=== PATIENT | male | born 1940 | race Caucasian/White ===

== ENCOUNTER 2016-08-29 10:19 | Emergency (ER) | payer OTHER ==
[~2016-08-29 10:19] MED LIST: DILT-XR180 MG PO; DORZOLAMIDE HCL2 % OP; ELIQUIS5 MG PO; FLECAINIDE ACE100 MG PO; LATANOPROST0.005 % OP; MULTIVITAMIN1 TAB PO; OMEGA 31000 MG PO; OMEPRAZOLE20 M1 PO; TIMOLOL MALEATE0.5 % OP; VITAMIN D-31000 UNIT PO; [UNRECOGNIZED DRUG - CODE] PO
--- NOTE | 2016-08-29 11:02 | DIAGNOSTIC IMAGING REPORT ---
PROCEDURE: XR ANKLE 3 OR 4 VIEWS - RIGHT INDICATION: PAIN TECHNIQUE: Four views. COMPARISON: None. FINDINGS: Osseous structures and joint spaces are normal. IMPRESSION: 1. Normal right ankle.
--- NOTE | 2016-08-29 12:56 | DIAGNOSTIC IMAGING REPORT ---
PROCEDURE: US ABDOMEN ULTRASOUND-LIMITED INDICATION: ABNORMAL LFT TECHNIQUE: Rodriguez scale and color Doppler sonographic images were obtained of the right upper quadrant. COMPARISON: CT 02/29/2016 FINDINGS: The liver is normal in size, contour, and echotexture. No mass or biliary dilatation. The gallbladder fundus contains multiple shadowing calcifications obscuring visualization of the remainder of the gallbladder. The structure believed to be the wall is about 1.5 mm in thickness. The visualized common duct is 3 mm. No visible pericholecystic fluid or Love's sign. The pancreas was not seen secondary to bowel gas. The visible portion of the inferior vena cava, abdominal aorta, and portal vein appear normal with appropriate direction of flow in the portal vein. The right kidney demonstrates a thin renal cortex with prominence of the renal sinus fat, and measures 9.4 cm in length. No hydronephrosis. IMPRESSION: 1. Cholelithiasis without convincing findings of cholecystitis. 2. No biliary dilatation. 3. Nonvisualization of the pancreas. 4. Right renal cortical thinning. Correlate with kidney function.
--- NOTE | 2016-08-29 13:12 | ED ORDER SUMMARY ---
..... Patient: ELIESER VALENCIA OrderSheet [facility] VisitID: [id number] [place] [address] 76y, M Registration Date/Time: 08/29/2016 ORDER SHEET Weight: 105.6 kg (stated) Allergies: No Known Drug Allergy GENERAL ORDERS: CBC w Diff Urgent (10:41 08/29/2016 Ervin PRITCHETT) (Ack 11:01 Kvng) (11:02 JBoardlebeth R.N.) CMP Urgent (10:41 08/29/2016 Ervin PRITCHETT) (Ack 11:01 Kvng) (11:02 JBoardlebeth R.N.) PT with INR Urgent (10:41 08/29/2016 Ervin PRITCHETT) (Ack 11:01 Kvng) (11:02 JBoardlebeth R.N.) PTT Urgent (10:41 08/29/2016 Ervin PRITCHETT) (Ack 11:01 Kvng) (11:02 JBoardlebeth R.N.) ESR Urgent (10:41 08/29/2016 Ervin PRITCHETT) (Ack 11:01 Kvng) (11:02 JBlebron R.N.) CRP Urgent (10:41 08/29/2016 Ervin PRITCHETT) (Ack 11:01 Kvng) (11:02 JBoardley R.N.) Uric Acid Urgent (10:41 08/29/2016 Ervin PRITCHETT) (Ack 11:01 Kvng) (11:02 JBoardley R.N.) Ankle 3 or 4V Right Urgent (10:42 08/29/2016 Ervin PRITCHETT) (10:51 JBoardley R.N.) US Abdomen Limited (No) Urgent (11:37 08/29/2016 Ervin PRITCHETT) (Ack 11:42 Kvng) (12:28 JBoardlebeth R.N.) Amylase Urgent (11:37 08/29/2016 Ervin PRITCHETT) (Ack 11:42 Kvng) (11:52 JBoardley R.N.) Lipase Urgent (11:37 08/29/2016 Ervin PRITCHETT) (Ack 11:42 Kvng) (11:52 Evon R.N.) UA-Culture if indicated Urgent (11:42 08/29/2016 Ervin PRITCHETT) (Ack 11:43 Kvng) (11:50 Evon R.N.) MEDICATION ORDERS: IV FLUIDS: IV Saline Lock (10:41 08/29/2016 Ervin PRITCHETT) (10:49 Evon Negrete.N.) ORDER SHEET NOTES: [Electronically signed by Shiv Stout MD (13:37 08/29/2016)] [Electronically signed by Reid Salazar R.N. (13:39 08/29/2016)] [Electronically locked/signed by Reid Salazar R.N. (13:39 08/29/2016)]
--- NOTE | 2016-08-29 13:12 | ED CLINICAL REPORT ---
Clinical Report - Physicians/Mid Levels [place] [address] [place] [address] 08/29/2016 10:20 Patient: ELIESER VALENCIA Time Seen: 10:35. Arrived- By private vehicle. Historian- patient. HISTORY OF PRESENT ILLNESS Chief Complaint: LOWER EXTREMITY PAIN and SWELLING. Severity is described as being moderate. It has become recently worse. The quality is noted to be burning. This started several weeks ago and is still present (worse since yesterday). It was gradual in onset and has been intermittent and waxing/waning. Symptoms located in the area of the right ankle and right foot. The patient has had redness (recently - gone now). He has had swelling. He has had difficulty walking. It has been associated with pain in the right leg. Patient denies an injury. Recent medical care: The patient was seen recently at another facility in a clinic. Diagnosis: unknown. REVIEW OF SYSTEMS No chills, fever, sweats, black stools or bloody stools. No constipation, diarrhea, nausea or vomiting. He has had intermittent abdominal pain (chronically - worsened by eating fatty meals). He has had urinary problems (he had dark orange urine for about 4 days - improving since yesterday). his Lisinopril was increased form 50 mg to 100 mg on the 21st of last month. All systems otherwise negative, except as recorded above. PAST HISTORY ( Primary physician (JERSON LAMAR)). Problems: Gout. Abdominal Pain. Atrial Fibrillation. Additional Surgeries: Cardiac Procedures. Hip Surgery. Medications: Xarelto Oral (Tablet 20 mg) 1 tablet, every evening. Timolol Maleate Ophthalmic (Solution 0.5 %). Omeprazole Oral 20 mg, daily. Losartan Potassium Oral 50 mg, 2 tabs daily. Latanoprost Ophthalmic (Solution 0.005 %). Dorzolamide HCl Ophthalmic (Solution 2 %). Diltiazem HCl ER Oral 180mg, daily. Flecainide Acetate Oral (Tablet 100 mg) 1 tablet, 2x a day. Allergies: No Known Drug Allergy. SOCIAL HISTORY Smoker- current status unknown. No alcohol use or drug use. Is a local resident. He lives with a friend. FAMILY HISTORY Family medical history is unknown due to adoption. ADDITIONAL NOTES The nursing notes have been reviewed. PHYSICAL EXAM Vital Signs: 08/29/2016 10:28 BP: 143/86. HR: 91. RR: 16. O2 saturation: 99%. Temp: 97.7 F. Pain level now: 02/28. Have been reviewed. Appearance: Alert. Eyes: Pupils equal, round and reactive to light. ENT: Pharynx normal. Neck: Normal inspection. Neck supple. CVS: Normal heart rate and rhythm. Heart sounds normal. Respiratory: No respiratory distress. Breath sounds normal. Abdomen: Soft and nontender. No organomegaly. Skin: Skin warm and dry. Normal skin color. Normal skin turgor. Extremities: Right foot: moderate tenderness located in the medial aspect of the foot and toe(s). Lower extremities exhibit normal ROM. No lower extremity edema. No signs of infection involving the lower extremities. Gait: Abnormal gait. Limping gait. LABS, X-RAYS, AND EKG X-Rays: Right ankle negative. Abdominal Sonogram: Multiple gallstones are present. (discussed with the [employer]). No gallbladder wall thickening, pericholecystic fluid, dilated common duct or common duct stones. The study was independently viewed by me. Laboratory Tests: UA-Culture if indicated: (GIULIANO: 08/29/2016 11:45) ( MsgRcvd 08/29/2016 12:09) Final results Test Result Flag Units (Reference) URINE COLOR YELLOW URINE APPEARANCE CLEAR URINE GLUCOSE NEGATIVE (NEGATIVE) URINE BILIRUBIN NEGATIVE (NEGATIVE) URINE KETONE NEGATIVE (NEGATIVE) URINE SPECIFIC GRAVITY 1.015 (1.010-1.030) URINE PH 6.0 (5.0-8.0) URINE PROTEIN NEGATIVE (NEGATIVE) URINE UROBILINOGEN 1.0 EU/dL (0.2-1.0) URINE NITRITE NEGATIVE (NEGATIVE) URINE BLOOD 1+ (NEGATIVE) URINE LEUK ESTERASE NEGATIVE (NEGATIVE) URINE RBC 3-5 rbc/hpf (0-1) URINE WBC 1-3 wbc/hpf (0-1) URINE EPITHELIAL CELLS RARE EPI/hpf (0-5) URINE BACTERIA TRACE (<1+) (NONE SEEN) URINE COMMENT CULT NOT INDICATED 1+ MUCOUSURINE CULTURES ARE SET-UP BASED ON THE FOLLOWING CRITERIA:POSITIVE NITRITEPOSITIVE LEUKOCYTE ESTERASEGREATER THAN 10 WHITE BLOOD CELLSMODERATE (2+) OR GREATER BACTERIA CBC w Diff: (GIULIANO: 08/29/2016 10:50) ( [facility] 08/29/2016 11:20) Final results Test Result Flag Units (Reference) WHITE BLOOD COUNT 7.4 K/uL (4.5-11.5) RED BLOOD COUNT 5.07 M/uL (4.50-5.90) HEMOGLOBIN 13.8 gm/dL (13.5-17.5) HEMATOCRIT 41.8 % (41.0-53.0) MEAN CELL VOLUME 82 fL (80-100) MEAN CORPUSCULAR HGB 27 pg (26-34) MEAN CORPUSCULAR HGB CONC 33 g/dL (31-37) RED CELL DISTRIBUTION WIDTH 16.0 H % (11.6-14.8) PLATELET COUNT 285 K/uL (150-400) NEUTROPHIL % 62.6 % (50-75) LYMPH % 23.3 L % (25-40) MONO % 9.2 % (3-14) EOSINOPHIL % 4.0 % (0-4) BASOPHIL % 0.9 % (0-2) SED RATE WESTERGREN 20 mm/hr (0-20) PT with INR: (GIULIANO: 08/29/2016 10:50) ( [facility] 08/29/2016 11:16) Final results Test Result Flag Units (Reference) INR 1.5 H (0.8-1.2) Low Intensity Therapy: INR 1.5-2.0 PT range 18.5-23.1Mod.Intensity Therapy: INR 2.0-3.0 PT range 23.1-31.5High Intensity Therapy: INR 2.5-3.5 PT range 27.4-35.5High Intensity Therapy 2: INR 3.0-4.0 PT range 31.5-39.3 APTT 38 H SECONDS (24-34) Lipase: (GIULIANO: 08/29/2016 10:50) ( [facility] 08/29/2016 11:55) Final results Test Result Flag Units (Reference) LIPASE 260 U/L (73-393) AMYLASE 48 U/L (25-115) CMP: (GIULIANO: 08/29/2016 10:50) ( MsgRcvd 08/29/2016 11:16) Final results Test Result Flag Units (Reference) GLUCOSE 109 mg/dL (70-110) BUN 21 H mg/dL (7-18) CREATININE 1.4 H mg/dL (0.6-1.3) Estimated GFR 52.51 mL/min Estimated GFR- >60 mL/min Note: Persistent reduction over 3 months in eGFR<60 mL/min/1.73 m2 defines CKD. Patients with eGFR values>=60 mL/min/1.73 m2 may also have CKD if evidence ofpersistent proteinuria. Additional information may be foundat www.kidney.org. SODIUM 138 mmol/L (136-145) POTASSIUM 4.0 mmol/L (3.5-5.1) CHLORIDE 104 mmol/L (98-107) CARBON DIOXIDE 26 mmol/L (21-32) CALCIUM 9.1 mg/dL (8.5-10.1) TOTAL PROTEIN 8.0 g/dL (6.4-8.2) ALBUMIN 3.2 L g/dL (3.3-5.0) BILIRUBIN, TOTAL 1.2 H mg/dL (0.0-1.0) ALKALINE PHOSPHATASE 343 H U/L (46-116) AST (SGOT) 57 H U/L (15-37) ALT (SGPT) 167 H U/L (12-78) URIC ACID 7.0 mg/dL (2.6-7.2) C-REACTIVE PROTEIN 2.9 H mg/dL (0.0-0.9) . PROGRESS AND PROCEDURES Course of Care: Patient is stable. Discussed case with patient's primary care provider, (Pro). Reviewed test results and need for additional work-up. Agreed upon treatment plan and need for patient follow-up. Health care provider will see patient in office. Patient/family counseled. Old medical records reviewed. Disposition: Discharged. Condition: stable. CLINICAL IMPRESSION Right ankle and foot pain. Biliary colic with multiple gallstones. Renal insufficiency. INSTRUCTIONS You may walk and bear weight as tolerated. Avoid fatty and fried/greasy foods. Warnings: Further evaluation is necessary. GENERAL WARNINGS: Return or contact your physician immediately if your condition worsens or changes unexpectedly, if not improving as expected, or if other problems arise. Your Current Medications: CONTINUE TAKING THE FOLLOWING MEDICATIONS: Diltiazem HCl ER Oral : 180mg daily. Dorzolamide HCl Ophthalmic : Solution 2 %. Flecainide Acetate Oral : Tablet 100 mg, 1 tablet 2x a day. Latanoprost Ophthalmic : Solution 0.005 %. Losartan Potassium Oral : 50 mg 2 tabs daily. Omeprazole Oral : 20 mg daily. Timolol Maleate Ophthalmic : Solution 0.5 %. Xarelto Oral : Tablet 20 mg, 1 tablet every evening. Prescription Medications: Prednisone 20 mg: take 2 orally every day for 5 days. Dispense ten (10). No refills. Follow-up: Follow up with your doctor JERSON LAMAR in four days. Call for an appointment. Understanding of the discharge instructions verbalized by patient. Follow-up with: Oliverio Kirby MD, General Surgeon, , [facility], [address] [place] [address] Follow up in seven days. Call for the next available appointment. (Electronically signed by Shiv Stout MD 08/29/2016 13:37)
--- NOTE | 2016-08-29 13:12 | ED ORDER SUMMARY ---
..... Patient: ELIESER VALENCIA OrderSheet [facility] VisitID: [id number] [place] [address] 76y, M Registration Date/Time: 08/29/2016 ORDER SHEET Weight: 105.6 kg (stated) Allergies: No Known Drug Allergy GENERAL ORDERS: CBC w Diff Urgent (10:41 08/29/2016 Ervin PRITCHETT) (Ack 11:01 Kvng) (11:02 JBoardlebeth R.N.) CMP Urgent (10:41 08/29/2016 Ervin PRITCHETT) (Ack 11:01 Kvng) (11:02 JBoardlebeth R.N.) PT with INR Urgent (10:41 08/29/2016 Ervin PRITCHETT) (Ack 11:01 Kvng) (11:02 JBoardlebeth R.N.) PTT Urgent (10:41 08/29/2016 Ervin PRITCHETT) (Ack 11:01 Kvng) (11:02 JBoardlebeth R.N.) ESR Urgent (10:41 08/29/2016 Ervin PRITCHETT) (Ack 11:01 Kvng) (11:02 JBlebron R.N.) CRP Urgent (10:41 08/29/2016 Ervin PRITCHETT) (Ack 11:01 Kvng) (11:02 JBoardley R.N.) Uric Acid Urgent (10:41 08/29/2016 Ervin PRITCHETT) (Ack 11:01 Kvng) (11:02 JBoardley R.N.) Ankle 3 or 4V Right Urgent (10:42 08/29/2016 Ervin PRITCHETT) (10:51 JBoardley R.N.) US Abdomen Limited (No) Urgent (11:37 08/29/2016 Ervin PRITCHETT) (Ack 11:42 Kvng) (12:28 JBoardlebeth R.N.) Amylase Urgent (11:37 08/29/2016 Ervin PRITCHETT) (Ack 11:42 Kvng) (11:52 JBoardley R.N.) Lipase Urgent (11:37 08/29/2016 Ervin PRITCHETT) (Ack 11:42 Kvng) (11:52 Evon R.N.) UA-Culture if indicated Urgent (11:42 08/29/2016 Ervin PRITCHETT) (Ack 11:43 Kvng) (11:50 Evon R.N.) MEDICATION ORDERS: IV FLUIDS: IV Saline Lock (10:41 08/29/2016 Ervin PRITCHETT) (10:49 Evon Negrete.N.) ORDER SHEET NOTES: [Electronically signed by Shiv Stout MD (13:37 08/29/2016)] [Electronically signed by Reid Salazar R.N. (13:39 08/29/2016)] [Electronically locked/signed by Reid Salazar R.N. (13:39 08/29/2016)]
--- NOTE | 2016-08-29 13:12 | ED NURSING NOTES ---
Clinical Report - Nurses [facility] [address] [place] [address] 08/29/2016 10:20 Patient: ELIESER VALENCIA TRIAGE Triage time 10:26. Acuity: LEVEL 4. Chief Complaint: Location of symptoms- right ankle. 10:26 08/29/16. 10:08/29/16. Alert. No acute distress. ( Right ankle pain that started 02 of AUGUST. Pt states that he went to PCP regarding this pain. Pt also states that this right ankle pain starting getting worse yesterday.). SEPSIS SCREEN: Sepsis Screen. Negative (no infection suspected/documented). [place] COMA SCORE: [place] Coma Scale: 15- eyes open spontaneously (4); best verbal response- oriented x 4 (5); best motor response- obeys commands (6). --10:35 Reid Salazar R.N. 10:28 08/29/16. BP: 143/86. HR: 91. RR: 16. O2 saturation: 99% on room air. Temp: 97.7 F (oral). Pain level now: 02/28. --10:35 Reid Salazar R.N. Weight: 105.6 kg stated. Height/Length: 72 inches Per Patient. BMI: 31.6. --10:34 Reid Salazar R.N. Medications Flecainide Acetate Oral (Tablet 100 mg) 1 tablet, 2x a day. --10:29 Reid Salazar R.N. Diltiazem HCl ER Oral 180mg, daily. --10:31 Reid Salazar R.N. Dorzolamide HCl Ophthalmic (Solution 2 %). --10:32 Reid Salazar R.N. Latanoprost Ophthalmic (Solution 0.005 %). --10:32 Reid Salazar R.N. Losartan Potassium Oral 50 mg, 2 tabs daily. --10:33 Reid Salazar R.N. Omeprazole Oral 20 mg, daily. --10:33 Reid Salazar R.N. Timolol Maleate Ophthalmic (Solution 0.5 %). --10:34 Reid Salazar R.N. Xarelto Oral (Tablet 20 mg) 1 tablet, every evening. --10:34 Reid Salazar R.N. The following entry was struck by Reid Salazar R.N., 10:44 (08/29/16) Reason - other. <<STRICKEN ENTRY-- Eliquis Oral (Tablet 5 mg) 1 tablet, bid. --10:29 Reid Salazar R.N. --END STRIKE>> The following entry was struck by Reid Salazar R.N., 10:31 (08/29/16) Reason - other. <<STRICKEN ENTRY-- Diltiazem HCl Oral 180 mg, 2x a day. --10:29 Reid Salazar R.N. --END STRIKE>>. Allergies No Known Drug Allergy. --10:29 Reid Salazar R.N. History Arrived by private vehicle. Historian: patient. Accompanied by friend. Primary physician (JERSON LAMAR). 10:08/29/16. No injury occurred. Treatment SETTER OUT: None. PAST MEDICAL HX: No history of deep vein thrombosis. Tetanus status: up-to-date. Immunizations: up-to-date. SOCIAL HX: Smoker- current status unknown. No alcohol use or drug use. FALL RISK ASSESSMENT: Fall risk assessment completed. No fall risk identified. NUTRITIONAL RISK ASSESSMENT: The nutritional risk assessment revealed no deficiencies. FUNCTIONAL ASSESSMENT: Functional assessment: no impairments noted. LEARNING NEEDS ASSESSMENT: The learning needs assessment revealed no barriers. --10:35 Reid Salazar R.N. PROBLEMS: Abdominal Pain. Atrial Fibrillation. --10:29 Reid Salazar R.N. ADDITIONAL SURGERIES: Hip Surgery. --10:29 Reid Salazar R.N. Cardiac Procedures. --10:29 Reid Salazar R.N. Assessment 10:08/29/16. --10:35 Reid Salazar R.N. Interventions 10:08/29/16. 10:08/29/16. ID and allergy band on patient. To treatment room. --10:35 Reid Salazar R.N. PHYSICAL ASSESSMENT 10:35 08/29/16. Ambulatory to room. GENERAL / NEURO / PSYCH: Oriented X 4. Alert. Appears in no acute distress. EXTREMITIES: Extremity pulses are within normal limits. Neuro-vascular status intact to the extremity. Right ankle: tenderness and swelling. SKIN: Skin is warm and dry. --10:35 Reid Salazar R.N. NURSING PROGRESS NOTES 10:35 08/29/16. Call light placed in reach. Side rails up x 2. Bed placed in lowest position. Brakes of bed on. Patient ready for evaluation- chart flagged and notification provided. --10:35 Reid Salazar R.N. 10:35 08/29/16. The plan of care for this patient has been created. Extremity elevated. Reassurance given. --10:35 Reid Salazar R.N. 10:43 08/29/2016 Site #1 started via IV in the right forearm with an 20g angiocath; one attempt. Blood drawn: rainbow set. Labeled in the presence of the patient and sent to the lab. Saline lock flushed with 10 mL saline. --10:48 Reid Salazar R.N. 10:53 08/29/16. ( X-ray completed at bedside). --10:53 Reid Salazar R.N. 10:53 08/29/16. Patient waiting for lab results and radiology study result. --10:53 Reid Salazar R.N. 11:32 08/29/16. --11:32 Reid Salazar R.N. 11:31 08/29/16. BP: 134/74. HR: 77. RR: 14. O2 saturation: 99% on room air. Temp: 98.2 F (oral). --11:32 Reid Salazar R.N. 11:32 08/29/16. Patient informed about reason for wait and about plan of care. --11:32 Reid Salazar R.N. 11:32 08/29/16. Patient waiting for lab results. --11:32 Reid Salazar R.N. 11:32 08/29/16. Patient waiting for radiology results. --11:32 Reid Salazar R.N. 11:32 08/29/16. Patient waiting for disposition. --11:32 Reid Salazar R.N. 11:50 08/29/16. Patient informed about reason for wait and about plan of care. Patient waiting for diagnostic study to be done (US). --11:50 Reid Salazar R.N. 11:52 08/29/16. --11:52 Reid Salazar R.N. 11:51 08/29/16. BP: 144/77. HR: 60. RR: 14. O2 saturation: 100% on room air. Pain level now: 010. --11:52 Reid Salazar R.N. 11:52 08/29/16. GENERAL / NEURO / PSYCH: Alert. Oriented X 4. RESPIRATORY: No respiratory distress. CVS: Capillary refill less than 2 seconds. SKIN: Skin is warm and dry. --11:52 Reid Salazar R.N. 12:04 08/29/16. ( US at bedside). --12:04 Reid Salazar R.N. 12:27 08/29/16. ( US completed). --12:27 Reid Salazar R.N. 12:08/29/16. ( ERMD trying to page PCP for plan with patient, pt with gallstones). --12:51 Reid Salazar R.N. 12:51 08/29/16. --12:51 Reid Salazar R.N. 12:08/29/16. BP: 138/78. HR: 59. RR: 14. O2 saturation: 99% on room air. Temp: 98.1 F (oral). Pain level now: 010. --12:51 Reid Salazar R.N. 12:51 08/29/16. Patient informed about reason for wait and about plan of care. --12:51 Reid Salazar R.N. 12:51 08/29/16. Patient waiting for disposition. --12:51 Reid Salazar R.N. 13:09 08/29/16. Patient informed about reason for wait and about plan of care. --13:09 Reid Salazar R.N. DISPOSITION / DISCHARGE 13:28 08/29/16. BP: 157/85. HR: 60. RR: 16. O2 saturation: 100% on room air. Temp: 98 F (oral). Pain level now 0/10. --13:29 Albaro Humphrey R.N. 13:21 08/29/2016 Site #1 removed upon discharge. Catheter intact. Manual pressure and bandage applied. --13:31 Albaro Humphrey R.N. 13:29 08/29/16. Departure time: 1327. Condition at departure: improved and stable. No learning barriers present. Discharge instructions provided and reviewed with the patient. Reviewed medication(s) side effects, precautions, dosing and course information. Prescription(s) given to the patient. Follow up contact number f/u with mar and Dr Kirby, instructed to call today for appts. Patient verbalized understanding. Written instructions provided in Fijian. The patient was discharged by the physician. He was discharged home and accompanied by friend. He left the Emergency Department ambulatory and via private vehicle. Driving (friend). --13:29 Albaro Humphrey R.N. Locked/Released at 08/29/2016 13:39 by Reid Salazar R.N.
--- NOTE | 2016-08-29 13:39 | ED MED RECONCILIATION SUMMARY ---
Patient: ELIESER VALENCIA Medication Reconciliation Report [facility] VisitID: [id number] [address] [place] [address] 76y, M Registration Date/Time: 08/29/2016 Weight: 105.6 kg Height/Length: 72 in. BMI: 31.6 ALLERGIES: No Known Drug Allergy The patient's Home Medications are listed below: CONTINUE TAKING THE FOLLOWING MEDICATIONS: Diltiazem HCl ER Oral 180mg, daily Dorzolamide HCl Ophthalmic (2 %) Flecainide Acetate Oral (100 mg) 1 tablet, 2x a day Latanoprost Ophthalmic (0.005 %) Losartan Potassium Oral 50 mg, 2 tabs daily Omeprazole Oral 20 mg, daily Timolol Maleate Ophthalmic (0.5 %) Xarelto Oral (20 mg) 1 tablet, every evening The source(s) of the original Home Medication information: Not obtained. The following Medications were given to the patient in the Emergency Department: None. The following Medications were prescribed to the patient: Prednisone 20 mg: take 2 orally every day for 5 days. Dispense ten (10). No refills. -- Shiv Stout MD
--- NOTE | 2016-08-29 13:39 | ED MAR SUMMARY ---
..... Medication Administration Record [facility] [address] [place], [place] [id number] Patient: ELIESER VALENCIA Visit ID: [id number] 76y, M Weight: 105.6 kg Height/Length: 72 in BMI: 31.6 ALLERGIES: No Known Drug Allergy
--- NOTE | 2016-08-29 13:39 | ED MAR SUMMARY ---
..... Medication Administration Record [facility] [address] [place], [place] [id number] Patient: ELIESER VALENCIA Visit ID: [id number] 76y, M Weight: 105.6 kg Height/Length: 72 in BMI: 31.6 ALLERGIES: No Known Drug Allergy
--- NOTE | 2016-08-29 13:39 | ED DISCHARGE INSTRUCTIONS ---
Patient: LEIESER VALENCIA General Instructions [facility] VisitID: [id number] [place], [place] [id number] 76y, M Registration Date/Time: 08/29/2016 Right ankle and foot pain. Biliary colic with multiple gallstones. Renal insufficiency. INSTRUCTIONS You may walk and bear weight as tolerated. Avoid fatty and fried/greasy foods. Warnings: Further evaluation is necessary. GENERAL WARNINGS: Return or contact your physician immediately if your condition worsens or changes unexpectedly, if not improving as expected, or if other problems arise. Your Current Medications: CONTINUE TAKING THE FOLLOWING MEDICATIONS: Diltiazem HCl ER Oral : 180mg daily. Dorzolamide HCl Ophthalmic : Solution 2 %. Flecainide Acetate Oral : Tablet 100 mg, 1 tablet 2x a day. Latanoprost Ophthalmic : Solution 0.005 %. Losartan Potassium Oral : 50 mg 2 tabs daily. Omeprazole Oral : 20 mg daily. Timolol Maleate Ophthalmic : Solution 0.5 %. Xarelto Oral : Tablet 20 mg, 1 tablet every evening. Prescription Medications: Prednisone 20 mg: take 2 orally every day for 5 days. Dispense ten (10). No refills. Follow-up: Follow up with your doctor JERSON LAMAR in four days. Call for an appointment. Understanding of the discharge instructions verbalized by patient. Follow-up with: Oliverio Kirby MD, General Surgeon, , [facility], [address] [place] [address] Follow up in seven days. Call for the next available appointment. ADDITIONAL INFORMATION Gout Gout or "gouty arthritis" is an inflammation of a joint due to a build-up of gout crystals in the joint fluid. This occurs when there is an excess uric acid (a normal waste product) in the body. Uric acid builds up in the body when the kidneys are unable to filter enough of it from the blood. This may occur with aging or kidney disease. Gout occurs more often in persons with obesity, diabetes, hypertension, high fats in the blood. It may be present in other family members. Alcohol and certain foods (such as shellfish and alcohol) may increase uric acid levels in the blood and cause a gout attack. Gout causes a hot, red, swollen and painful joint. If you have had one episode of gout, you are likely to have another. An acute attack of gout can be treated with anti-inflammatory and other medicine. If these attacks become frequent it may be necessary to take a daily medicine to help the kidney remove uric acid from the body. Home Care: Apply an ice pack (ice cubes in a plastic bag, wrapped in a towel) over the injured area for 20 minutes every 1-2 hours the first day for pain relief. Continue this 3-4 times a day until the pain and swelling goes away. Avoid alcohol and foods listed below (see Prevention) during a gout attack. Drink extra fluid to help flush the uric acid through your kidneys. Rest painful joints. If gout affects the joints of your foot or leg, you may want to use crutches for the first few days to keep from bearing weight on the foot or leg. Take anti-inflammatory medicine as directed. You may be prescribed Indocin (indomethacin), or ybvi-jtu-utdnzzj drugs such as ibuprofen (Motrin, Advil) or naproxen (Naprosyn or Aleve). Tylenol will not be as effective since it is not an anti-inflammatory drug. If narcotic pain medicines have been prescribed, they should be used in addition to the anti-inflammatory drugs and only for severe pain. Avoid aspirin since this may slow down the flushing of the uric acid through your kidneys. Preventing Future Attacks: Minimize or avoid alcohol use. Excess alcohol intake can cause a gout attack. Foods high in purine form uric acid in the body and increase your risk for a gout attack. Therefore, avoid the following foods: certain seafoods (anchovies, sardines, shrimp, scallops, venegas, mackerel); wild game, meat extracts and meat gravies; organ foods (kidney, liver, calf brain, sweetbreads). Avoid drinks with fructose (a type of sugar). Limit the following foods to one serving a day: red meat and pork, fish, poultry, dried beans and peas, asparagus, mushrooms, cauliflower and spinach. If you are overweight, this is a risk factor and you should talk to your doctor about a weight reduction plan. However, avoid fasting or extreme low calorie diets (less than 900 chay/day) which will increase uric acid levels in the body. If you are diabetic or have high blood pressure, work with your doctor to achieve control of these conditions. Avoid injury to the involved joint since this can lead to a gout attack. Colchicine can be effective in stopping a gout attack. If you were given a prescription of this medicine for future use, begin it at the first sign of an attack. Colchicine may cause nausea, vomiting, diarrhea and other side effects. Follow Up with your doctor as advised or if you are not improving after three days of treatment. Get Prompt Medical Attention if any of the following occur: Fever over 100.4F (38.0C) with worsening joint pain Increasing redness around the joint Pain developing in another joint Repeated vomiting, abdominal pain, or blood in the vomit or stool (black or red color) GallstonesWith Biliary Colic [Confirmed Dx] The abdominal pain that you have today is due to spasm of the gallbladder. The gallbladder is a small sac under the liver which stores and releases bile. Bile is a fluid that aids in the digestion of fat. A gallstone may form inside the gallbladder and block the flow of bile fluid. This causes mild to severe crampy pain in the mid or right upper abdomen with nausea and vomiting. Home Care: Rest in bed and follow a clear liquid diet until feeling better. If pain or nausea medicine was given to help with your symptoms, take these as directed. Fat in your diet makes the gallbladder contract and may cause increased pain. Therefore, avoid fat in your diet over the next two days and follow a low-fat diet after that. If you are overweight, a low-fat diet will also help you lose weight. Follow Up with your doctor. There is a 50% chance that you will have another episode of pain from your gallstones during the next 2 years. Removal of the gallbladder is the treatment of choice to prevent this. Schedule an appointment with your own doctor during the next week to discuss the treatment options. Get Prompt Medical Attention if any of the following occur: Pain gets worse or moves to the right lower abdomen Repeated vomiting Swelling of the abdomen Pain lasts over 6 hours Fever of 100.4F (38C) or higher, or as directed by your healthcare provider Weakness, dizziness or fainting Dark urine or light colored stools Yellow color of the skin or eyes Chest, arm, back, neck or jaw pain Renal Insufficiency The role of the kidneys is to remove waste products and excess water from the body. When the kidneys do not function normally, waste products build up in the blood.The early stage of this process is called renal insufficiency . If renal insufficiency worsens it can lead to chronic renal failure. This allows excess water, waste and toxic substances to build up in the body. This can become a threat to life, requiring dialysis or a kidney transplant to stay alive. Diabetes is the leading causes of renal insufficiency. Other causes include high blood pressure, hardening of the arteries, lupus, inflammation of the blood vessels (vasculitis), prior viral and bacterial infections, and others. Certain mjdv-ydy-afnpgsb pain medicines can cause renal failure when taken often over a long period of time. These include aspirin, ibuprofen (Advil, Motrin) and related anti-inflammatory medicines. Home Care: If you have diabetes, talk to your doctor about the quality of your blood sugar control.Ask about any changes needed to your diet or medicines. If you have high blood pressure: Take your blood pressure medicine. Take up a regular exercise program that you enjoy.Check with your doctor to be sure your planned exercise program is right for you. Reduce your salt (sodium) intake.Your doctor can tell you how much salt per day is safe for you. If you are overweight, talk to your doctor about a weight loss plan. If you smoke, you must quit.Smoking worsens kidney disease.Talk to your doctor about ways to help you quit.For more information, visit the following links: www.smokefree.gov/pubs/clearing_the_air.pdf www.smokefree.gov www.quitnet.com Talk to your doctor about any dietary restrictions advised. In general, it is advisable to limit protein, salt, potassium and phosphorus.Avoid excess fluids. Do not add salt at the table and avoid salty foods.A calcium supplement may be prescribed to protect your bones from osteoporosis. Avoid the following over the counter medicines, or consult your doctor before using: Aspirin and anti-inflammatory drugs such as ibuprofen (Advil, Motrin), naprosyn (Aleve); [Short term use of acetaminophen (Tylenol) for fever or pain is okay.] Laxatives and antacids containing magnesium or aluminum (Mylanta, Maalox) Avoid Fleet or phosphosoda enemas which contain phosphorus Certain stomach acid-blocking medicine such as cimetidine (Tagamet), ranitidine (Zantac) Decongestants containing pseudoephedrine (such as some forms of Sudafed or Actifed) Herbal supplements Follow Up with your doctor or as advised by our staff. Contact one of the following for more information. [employer]([phone] 343-5066 www.aakp.org National Kidney Foundation www.kidney.org Return Promptly or contact your doctor if any of the following occurs: Nausea or vomiting Severe weakness, dizziness, fainting, drowsiness or confusion Chest pain or shortness of breath Unexpected weight gain or swelling in the legs, ankles or around the eyes Heart beating fast, slow or irregularly Decrease or loss in urine output [place] Diet A bland diet is used for patients with an upset stomach. It consists of foods that are mild and easy to digest. It is better to eat small frequent meals rather than three large meals a day. BEVERAGES OK: Fruit juices, non-caffeinated teas and coffee, non-carbonated [place] AVOID: Carbonated beverage, caffeinated tea and coffee, all alcoholic beverages BREAD OK: Refined white, wheat or rye bread, omega or soda crackers, [place] toast, plain rolls, bagels AVOID: Whole-grain bread CEREAL OK: Refined cereals: cooked or ready to eat AVOID: Whole grain cereals and granola, or those containing bran, seeds or nuts DESSERTS OK: Peanut butter and all others except those to "avoid" AVOID: Chocolate, cocoa, coconut, popcorn, nuts, seeds, jam, marmalade FRUITS OK: Canned, cooked, frozen or fresh fruits without seeds or tough skin AVOID: Olives, skin and seeds of fruit MEATS OK: All fresh or preserved meat, fish and fowl AVOID: Any that are prepared with those spices to "avoid" CHEESE & EGGS OK: Eggs, cottage cheese, cream cheese, other cheeses AVOID: All cheeses made with those spices to "avoid" POTATOES & PASTA OK: Potato, rice, macaroni, noodles, spaghetti AVOID: None SOUPS OK: All soups without heavy seasoning AVOID: Soups made with those spices to "avoid" VEGETABLES OK: Canned, cooked, fresh or frozen mildly flavored vegetables without seeds, skins or coarse fiber AVOID: Vegetables prepared with those spices to "avoid"; skin and seeds of vegetables and those with coarse fiber SPICES OK: Salt, lemon and [place] juice, vinegar, all extracts, chanel, cinnamon, thyme, mace, allspice, paprika AVOID: [place] powder, cloves, pepper, seed spices, garlic, gravy pickles, highly seasoned salad dressings Prednisone Oral tablet What is this medicine? PREDNISONE (PRED ni sone) is a corticosteroid. It is commonly used to treat inflammation of the skin, joints, lungs, and other organs. Common conditions treated include asthma, allergies, and arthritis. It is also used for other conditions, such as blood disorders and diseases of the adrenal glands. How should I use this medicine? Take this medicine by mouth with a glass of water. Follow the directions on the prescription label. Take this medicine with food. If you are taking this medicine once a day, take it in the morning. Do not take more medicine than you are told to take. Do not suddenly stop taking your medicine because you may develop a severe reaction. Your doctor will tell you how much medicine to take. If your doctor wants you to stop the medicine, the dose may be slowly lowered over time to avoid any side effects. Talk to your litigation examiner regarding the use of this medicine in children. Special care may be needed. What side effects may I notice from receiving this medicine? Side effects that you should report to your doctor or health hospice care consultant as soon as possible: allergic reactions like skin rash, itching or hives, swelling of the face, lips, or tongue changes in emotions or moods changes in vision depressed mood eye pain fever or chills, cough, sore throat, pain or difficulty passing urine increased thirst swelling of ankles, feet Side effects that usually do not require medical attention (report to your doctor or health hospice care consultant if they continue or are bothersome): confusion, excitement, restlessness headache nausea, vomiting skin problems, acne, thin and shiny skin trouble sleeping weight gain What may interact with this medicine? Do not take this medicine with any of the following medications: metyrapone mifepristone This medicine may also interact with the following medications: aminoglutethimide amphotericin B aspirin and aspirin-like medicines barbiturates certain medicines for diabetes, like glipizide or glyburide cholestyramine cholinesterase inhibitors cyclosporine digoxin diuretics ephedrine female hormones, like estrogens and control pills isoniazid ketoconazole NSAIDS, medicines for pain and inflammation, like ibuprofen or naproxen phenytoin rifampin toxoids vaccines warfarin What if I miss a dose? If you miss a dose, take it as soon as you can. If it is almost time for your next dose, talk to your doctor or health hospice care consultant. You may need to miss a dose or take an extra dose. Do not take double or extra doses without advice. Where should I keep my medicine? Keep out of the reach of children. Store at room temperature between 15 and 30 degrees C (59 and 86 degrees F). Protect from light. Keep container tightly closed. Throw away any unused medicine after the expiration date. What should I tell my health care provider before I take this medicine? They need to know if you have any of these conditions: [place]'s syndrome diabetes glaucoma heart disease high blood pressure infection (especially a virus infection such as chickenpox, cold sores, or herpes) kidney disease liver disease mental illness myasthenia gravis osteoporosis seizures stomach or intestine problems thyroid disease an unusual or allergic reaction to lactose, prednisone, other medicines, foods, dyes, or preservatives or trying to get breast-feeding What should I watch for while using this medicine? Visit your doctor or health hospice care consultant for regular checks on your progress. If you are taking this medicine over a prolonged period, carry an identification card with your name and address, the type and dose of your medicine, and your doctor's name and address. This medicine may increase your risk of getting an infection. Tell your doctor or health hospice care consultant if you are around anyone with measles or chickenpox, or if you develop sores or blisters that do not heal properly. If you are going to have surgery, tell your doctor or health hospice care consultant that you have taken this medicine within the last twelve months. Ask your doctor or health hospice care consultant about your diet. You may need to lower the amount of salt you eat. This medicine may affect blood sugar levels. If you have diabetes, check with your doctor or health hospice care consultant before you change your diet or the dose of your diabetic medicine. You have been given the following additional information: Gouty Arthritis Biliary Colic With Gallstone (Confirmed) Renal Insufficiency Diet, [place] (Adult) Prednisone Oral tablet You may walk and bear weight as tolerated. (Electronically signed by Shiv Stout MD 08/29/2016 13:37)
--- NOTE | 2016-08-29 13:39 | ED DISCHARGE INSTRUCTIONS ---
Patient: ELIESER VALENCIA General Instructions [facility] VisitID: [id number] [place], [place] [id number] 76y, M Registration Date/Time: 08/29/2016 Right ankle and foot pain. Biliary colic with multiple gallstones. Renal insufficiency. INSTRUCTIONS You may walk and bear weight as tolerated. Avoid fatty and fried/greasy foods. Warnings: Further evaluation is necessary. GENERAL WARNINGS: Return or contact your physician immediately if your condition worsens or changes unexpectedly, if not improving as expected, or if other problems arise. Your Current Medications: CONTINUE TAKING THE FOLLOWING MEDICATIONS: Diltiazem HCl ER Oral : 180mg daily. Dorzolamide HCl Ophthalmic : Solution 2 %. Flecainide Acetate Oral : Tablet 100 mg, 1 tablet 2x a day. Latanoprost Ophthalmic : Solution 0.005 %. Losartan Potassium Oral : 50 mg 2 tabs daily. Omeprazole Oral : 20 mg daily. Timolol Maleate Ophthalmic : Solution 0.5 %. Xarelto Oral : Tablet 20 mg, 1 tablet every evening. Prescription Medications: Prednisone 20 mg: take 2 orally every day for 5 days. Dispense ten (10). No refills. Follow-up: Follow up with your doctor JERSON LAMAR in four days. Call for an appointment. Understanding of the discharge instructions verbalized by patient. Follow-up with: Oliverio Kirby MD, General Surgeon, , Formerly [facility], [address] [place] [address] Follow up in seven days. Call for the next available appointment. ADDITIONAL INFORMATION Gout Gout or "gouty arthritis" is an inflammation of a joint due to a build-up of gout crystals in the joint fluid. This occurs when there is an excess uric acid (a normal waste product) in the body. Uric acid builds up in the body when the kidneys are unable to filter enough of it from the blood. This may occur with aging or kidney disease. Gout occurs more often in persons with obesity, diabetes, hypertension, high fats in the blood. It may be present in other family members. Alcohol and certain foods (such as shellfish and alcohol) may increase uric acid levels in the blood and cause a gout attack. Gout causes a hot, red, swollen and painful joint. If you have had one episode of gout, you are likely to have another. An acute attack of gout can be treated with anti-inflammatory and other medicine. If these attacks become frequent it may be necessary to take a daily medicine to help the kidney remove uric acid from the body. Home Care: Apply an ice pack (ice cubes in a plastic bag, wrapped in a towel) over the injured area for 20 minutes every 1-2 hours the first day for pain relief. Continue this 3-4 times a day until the pain and swelling goes away. Avoid alcohol and foods listed below (see Prevention) during a gout attack. Drink extra fluid to help flush the uric acid through your kidneys. Rest painful joints. If gout affects the joints of your foot or leg, you may want to use crutches for the first few days to keep from bearing weight on the foot or leg. Take anti-inflammatory medicine as directed. You may be prescribed Indocin (indomethacin), or himo-nlo-bwzlkby drugs such as ibuprofen (Motrin, Advil) or naproxen (Naprosyn or Aleve). Tylenol will not be as effective since it is not an anti-inflammatory drug. If narcotic pain medicines have been prescribed, they should be used in addition to the anti-inflammatory drugs and only for severe pain. Avoid aspirin since this may slow down the flushing of the uric acid through your kidneys. Preventing Future Attacks: Minimize or avoid alcohol use. Excess alcohol intake can cause a gout attack. Foods high in purine form uric acid in the body and increase your risk for a gout attack. Therefore, avoid the following foods: certain seafoods (anchovies, sardines, shrimp, scallops, venegas, mackerel); wild game, meat extracts and meat gravies; organ foods (kidney, liver, calf brain, sweetbreads). Avoid drinks with fructose (a type of sugar). Limit the following foods to one serving a day: red meat and pork, fish, poultry, dried beans and peas, asparagus, mushrooms, cauliflower and spinach. If you are overweight, this is a risk factor and you should talk to your doctor about a weight reduction plan. However, avoid fasting or extreme low calorie diets (less than 900 chay/day) which will increase uric acid levels in the body. If you are diabetic or have high blood pressure, work with your doctor to achieve control of these conditions. Avoid injury to the involved joint since this can lead to a gout attack. Colchicine can be effective in stopping a gout attack. If you were given a prescription of this medicine for future use, begin it at the first sign of an attack. Colchicine may cause nausea, vomiting, diarrhea and other side effects. Follow Up with your doctor as advised or if you are not improving after three days of treatment. Get Prompt Medical Attention if any of the following occur: Fever over 100.4F (38.0C) with worsening joint pain Increasing redness around the joint Pain developing in another joint Repeated vomiting, abdominal pain, or blood in the vomit or stool (black or red color) GallstonesWith Biliary Colic [Confirmed Dx] The abdominal pain that you have today is due to spasm of the gallbladder. The gallbladder is a small sac under the liver which stores and releases bile. Bile is a fluid that aids in the digestion of fat. A gallstone may form inside the gallbladder and block the flow of bile fluid. This causes mild to severe crampy pain in the mid or right upper abdomen with nausea and vomiting. Home Care: Rest in bed and follow a clear liquid diet until feeling better. If pain or nausea medicine was given to help with your symptoms, take these as directed. Fat in your diet makes the gallbladder contract and may cause increased pain. Therefore, avoid fat in your diet over the next two days and follow a low-fat diet after that. If you are overweight, a low-fat diet will also help you lose weight. Follow Up with your doctor. There is a 50% chance that you will have another episode of pain from your gallstones during the next 2 years. Removal of the gallbladder is the treatment of choice to prevent this. Schedule an appointment with your own doctor during the next week to discuss the treatment options. Get Prompt Medical Attention if any of the following occur: Pain gets worse or moves to the right lower abdomen Repeated vomiting Swelling of the abdomen Pain lasts over 6 hours Fever of 100.4F (38C) or higher, or as directed by your healthcare provider Weakness, dizziness or fainting Dark urine or light colored stools Yellow color of the skin or eyes Chest, arm, back, neck or jaw pain Renal Insufficiency The role of the kidneys is to remove waste products and excess water from the body. When the kidneys do not function normally, waste products build up in the blood.The early stage of this process is called renal insufficiency . If renal insufficiency worsens it can lead to chronic renal failure. This allows excess water, waste and toxic substances to build up in the body. This can become a threat to life, requiring dialysis or a kidney transplant to stay alive. Diabetes is the leading causes of renal insufficiency. Other causes include high blood pressure, hardening of the arteries, lupus, inflammation of the blood vessels (vasculitis), prior viral and bacterial infections, and others. Certain kqyc-gnk-tkajyiw pain medicines can cause renal failure when taken often over a long period of time. These include aspirin, ibuprofen (Advil, Motrin) and related anti-inflammatory medicines. Home Care: If you have diabetes, talk to your doctor about the quality of your blood sugar control.Ask about any changes needed to your diet or medicines. If you have high blood pressure: Take your blood pressure medicine. Take up a regular exercise program that you enjoy.Check with your doctor to be sure your planned exercise program is right for you. Reduce your salt (sodium) intake.Your doctor can tell you how much salt per day is safe for you. If you are overweight, talk to your doctor about a weight loss plan. If you smoke, you must quit.Smoking worsens kidney disease.Talk to your doctor about ways to help you quit.For more information, visit the following links: www.smokefree.gov/pubs/clearing_the_air.pdf www.smokefree.gov www.quitnet.com Talk to your doctor about any dietary restrictions advised. In general, it is advisable to limit protein, salt, potassium and phosphorus.Avoid excess fluids. Do not add salt at the table and avoid salty foods.A calcium supplement may be prescribed to protect your bones from osteoporosis. Avoid the following over the counter medicines, or consult your doctor before using: Aspirin and anti-inflammatory drugs such as ibuprofen (Advil, Motrin), naprosyn (Aleve); [Short term use of acetaminophen (Tylenol) for fever or pain is okay.] Laxatives and antacids containing magnesium or aluminum (Mylanta, Maalox) Avoid Fleet or phosphosoda enemas which contain phosphorus Certain stomach acid-blocking medicine such as cimetidine (Tagamet), ranitidine (Zantac) Decongestants containing pseudoephedrine (such as some forms of Sudafed or Actifed) Herbal supplements Follow Up with your doctor or as advised by our staff. Contact one of the following for more information. [phone] www.aakp.org National Kidney Foundation www.kidney.org Return Promptly or contact your doctor if any of the following occurs: Nausea or vomiting Severe weakness, dizziness, fainting, drowsiness or confusion Chest pain or shortness of breath Unexpected weight gain or swelling in the legs, ankles or around the eyes Heart beating fast, slow or irregularly Decrease or loss in urine output Harlan Diet A bland diet is used for patients with an upset stomach. It consists of foods that are mild and easy to digest. It is better to eat small frequent meals rather than three large meals a day. BEVERAGES OK: Fruit juices, non-caffeinated teas and coffee, non-carbonated [place] AVOID: Carbonated beverage, caffeinated tea and coffee, all alcoholic beverages BREAD OK: Refined white, wheat or rye bread, omega or soda crackers, [place] toast, plain rolls, bagels AVOID: Whole-grain bread CEREAL OK: Refined cereals: cooked or ready to eat AVOID: Whole grain cereals and granola, or those containing bran, seeds or nuts DESSERTS OK: Peanut butter and all others except those to "avoid" AVOID: Chocolate, cocoa, coconut, popcorn, nuts, seeds, jam, marmalade FRUITS OK: Canned, cooked, frozen or fresh fruits without seeds or tough skin AVOID: Olives, skin and seeds of fruit MEATS OK: All fresh or preserved meat, fish and fowl AVOID: Any that are prepared with those spices to "avoid" CHEESE & EGGS OK: Eggs, cottage cheese, cream cheese, other cheeses AVOID: All cheeses made with those spices to "avoid" POTATOES & PASTA OK: Potato, rice, macaroni, noodles, spaghetti AVOID: None SOUPS OK: All soups without heavy seasoning AVOID: Soups made with those spices to "avoid" VEGETABLES OK: Canned, cooked, fresh or frozen mildly flavored vegetables without seeds, skins or coarse fiber AVOID: Vegetables prepared with those spices to "avoid"; skin and seeds of vegetables and those with coarse fiber SPICES OK: Salt, lemon and sitka juice, vinegar, all extracts, chanel, cinnamon, thyme, mace, allspice, paprika AVOID: Mcgraw powder, cloves, pepper, seed spices, garlic, gravy pickles, highly seasoned salad dressings Prednisone Oral tablet What is this medicine? PREDNISONE (PRED ni sone) is a corticosteroid. It is commonly used to treat inflammation of the skin, joints, lungs, and other organs. Common conditions treated include asthma, allergies, and arthritis. It is also used for other conditions, such as blood disorders and diseases of the adrenal glands. How should I use this medicine? Take this medicine by mouth with a glass of water. Follow the directions on the prescription label. Take this medicine with food. If you are taking this medicine once a day, take it in the morning. Do not take more medicine than you are told to take. Do not suddenly stop taking your medicine because you may develop a severe reaction. Your doctor will tell you how much medicine to take. If your doctor wants you to stop the medicine, the dose may be slowly lowered over time to avoid any side effects. Talk to your trim machine operator regarding the use of this medicine in children. Special care may be needed. What side effects may I notice from receiving this medicine? Side effects that you should report to your doctor or health career development counselor as soon as possible: allergic reactions like skin rash, itching or hives, swelling of the face, lips, or tongue changes in emotions or moods changes in vision depressed mood eye pain fever or chills, cough, sore throat, pain or difficulty passing urine increased thirst swelling of ankles, feet Side effects that usually do not require medical attention (report to your doctor or health career development counselor if they continue or are bothersome): confusion, excitement, restlessness headache nausea, vomiting skin problems, acne, thin and shiny skin trouble sleeping weight gain What may interact with this medicine? Do not take this medicine with any of the following medications: metyrapone mifepristone This medicine may also interact with the following medications: aminoglutethimide amphotericin B aspirin and aspirin-like medicines barbiturates certain medicines for diabetes, like glipizide or glyburide cholestyramine cholinesterase inhibitors cyclosporine digoxin diuretics ephedrine female hormones, like estrogens and control pills isoniazid ketoconazole NSAIDS, medicines for pain and inflammation, like ibuprofen or naproxen phenytoin rifampin toxoids vaccines warfarin What if I miss a dose? If you miss a dose, take it as soon as you can. If it is almost time for your next dose, talk to your doctor or health career development counselor. You may need to miss a dose or take an extra dose. Do not take double or extra doses without advice. Where should I keep my medicine? Keep out of the reach of children. Store at room temperature between 15 and 30 degrees C (59 and 86 degrees F). Protect from light. Keep container tightly closed. Throw away any unused medicine after the expiration date. What should I tell my health care provider before I take this medicine? They need to know if you have any of these conditions: Sperry's syndrome diabetes glaucoma heart disease high blood pressure infection (especially a virus infection such as chickenpox, cold sores, or herpes) kidney disease liver disease mental illness myasthenia gravis osteoporosis seizures stomach or intestine problems thyroid disease an unusual or allergic reaction to lactose, prednisone, other medicines, foods, dyes, or preservatives or trying to get breast-feeding What should I watch for while using this medicine? Visit your doctor or health career development counselor for regular checks on your progress. If you are taking this medicine over a prolonged period, carry an identification card with your name and address, the type and dose of your medicine, and your doctor's name and address. This medicine may increase your risk of getting an infection. Tell your doctor or health career development counselor if you are around anyone with measles or chickenpox, or if you develop sores or blisters that do not heal properly. If you are going to have surgery, tell your doctor or health career development counselor that you have taken this medicine within the last twelve months. Ask your doctor or health career development counselor about your diet. You may need to lower the amount of salt you eat. This medicine may affect blood sugar levels. If you have diabetes, check with your doctor or health career development counselor before you change your diet or the dose of your diabetic medicine. You have been given the following additional information: Gouty Arthritis Biliary Colic With Gallstone (Confirmed) Renal Insufficiency Diet, Harlan (Adult) Prednisone Oral tablet You may walk and bear weight as tolerated. (Electronically signed by Shiv Stout MD 08/29/2016 13:37)
--- NOTE | 2016-08-29 13:39 | ED MED RECONCILIATION SUMMARY ---
Patient: ELIESER VALENCIA Medication Reconciliation Report [facility] VisitID: [id number] [place] [address] 76y, M Registration Date/Time: 08/29/2016 Weight: 105.6 kg Height/Length: 72 in. BMI: 31.6 ALLERGIES: No Known Drug Allergy The patient's Home Medications are listed below: CONTINUE TAKING THE FOLLOWING MEDICATIONS: Diltiazem HCl ER Oral 180mg, daily Dorzolamide HCl Ophthalmic (2 %) Flecainide Acetate Oral (100 mg) 1 tablet, 2x a day Latanoprost Ophthalmic (0.005 %) Losartan Potassium Oral 50 mg, 2 tabs daily Omeprazole Oral 20 mg, daily Timolol Maleate Ophthalmic (0.5 %) Xarelto Oral (20 mg) 1 tablet, every evening The source(s) of the original Home Medication information: Not obtained. The following Medications were given to the patient in the Emergency Department: None. The following Medications were prescribed to the patient: Prednisone 20 mg: take 2 orally every day for 5 days. Dispense ten (10). No refills. -- Shiv Stout MD
[2016-10-06] MEDS ORDERED: XARELTO20 MG PO (14:52)
[2016-10-06] MEDS ORDERED: LISINOPRIL10 MG PO (15:10)
[2016-10-06] MEDS ORDERED: LOSARTAN POTAS100 MG PO (15:12)
== END 2016-08-29 13:27 | disposition home or self-care (01) ==
LOC: ED SRH 10:19
DX: K80.70 Calculus of gallbladder and bile duct without cholecystitis without obstruction (principal); N28.9 Disorder of kidney and ureter, unspecified; M25.571 Pain in right ankle and joints of right foot; I48.91 Unspecified atrial fibrillation; Z79.899 Other long term (current) drug therapy

== ENCOUNTER 2016-10-10 07:47 | Day surgery (SDC) | payer OTHER ==
[~2016-10-10] VITALS: Ht 182.9 cm; Wt 104.3 kg
[~2016-10-10 07:47] MED LIST changes: +LISINOPRIL10 MG PO; +LOSARTAN POTAS100 MG PO; +XARELTO20 MG PO
--- NOTE | 2016-10-10 09:04 | NUR ---
PT ADMITTED FOR LAP FERMÍN. PT CONFIRMED HIS NAME, , NPO STATUS, PLANNED PROCEDURE, MEDICATIONS AND ALLERGIES. CONSENT SIGNED. PRE-OP TEACHING COMPLETED AND QUESTIONS ANSWERED. IS EXPLAINED AND PT DEMONSTRATED CORRECT USAGE. IV ACCESS ESTABLISHED, LABS DRAWN WITH IV START. PT READY FOR SURGERY.
[2016-10-10] MEDS ORDERED: NORCO1 TA1 PO (11:08)
--- NOTE | 2016-10-10 11:08 | Provider's Discharge Care Plan ---
Problem, Goal, Plan Problem List 1. Cholelithiasis with chronic cholecystitis
--- NOTE | 2016-10-10 11:08 | Provider's Discharge Care Plan ---
Problem, Goal, Plan Problem List 1. Cholelithiasis with chronic cholecystitis
--- NOTE | 2016-10-10 11:09 | DIAGNOSTIC IMAGING REPORT ---
PROCEDURE: XR INTRAOPERATIVE LAP FERMÍN INDICATION: GALLSTONES TECHNIQUE: Intraoperative fluoroscopy provided for Dr. Ross performing an intraoperative cholangiogram following cholecystectomy. Total fluoroscopy time 0.21 minutes Cumulative dose 11.7 mGy. COMPARISON: Abdominal ultrasound 08/29/2016 FINDINGS: 3 intraoperative fluoroscopic spot images of the right upper quadrant of the abdomen demonstrate cannulation of the cystic duct stump and opacification of the intrahepatic and extrahepatic biliary tree. There are no filling defects. There is normal passage of contrast into the duodenum. IMPRESSION: 1. Negative intraoperative cholangiogram.
--- NOTE | 2016-10-10 11:19 | NUR ---
PATIENT ARRIVED TO PACU AT 1114. SPONT RESP. VITALS STABLE. SLEEPING. NASAL AIRWAY IN PLACE. ABDOMEN SOFT, WITH CLEAN, DRY DRESSINGS. WILL CONTINUE TO MONITOR.
--- NOTE | 2016-10-10 11:36 | NUR ---
NASAL AIRWAY REMOVED AT 1125. VITALS REMAIN STABLE. PATIENT COMPLAINT OF L SHOULDER PAIN. MEDICATED PER ANESTHESIA ORDERS. WILL CONTIUE TO MONITOR.
[2016-10-10 11:58] VITALS: BP 157/75
--- NOTE | 2016-10-10 12:22 | NUR ---
PT RECEIVED BACK FROM PACU AWAKE AND REASONABLY COMFORTABLE. REPORTS PAIN 4/10 AND DENIES NAUSEA.
--- NOTE | 2016-10-10 13:54 | NUR ---
PT AMBULATED 2 LOOPS WITHOUT PROBLEMS. PAIN CONTROLLED. ATE LIGHT LUNCH AND TOLERATING WELL.
--- NOTE | 2016-10-10 14:42 | NUR ---
PT ATTEMPTED TO VOID AND WAS UNSUCCESSFUL. STATES HE DOES NOT FEEL A NEED TO VOID OR FEEL FULLNESS IN HIS BLADDER. INSTRUCTED PATIENT THAT HE NEEDS TO COME BACK TO THE HOSPITAL IF HE IS UNABLE TO VOID BY 1999 TONIGHT, HE STATED THAT WOULD NOT BE A PROBLEM AND WANTS TO GO HOME.
--- NOTE | 2016-10-13 15:07 | OPERATIVE REPORT ---
DATE OF SURGERY: 10/10/2016 SURGEON: Oliverio Kirby MD LABORER ADJUSTABLE STEEL JOIST: James Crain III, MD PREOPERATIVE DIAGNOSIS: 1. Cholelithiasis with chronic cholecystitis POSTOPERATIVE DIAGNOSIS: 1. Cholelithiasis with chronic cholecystitis PROCEDURE PERFORMED: 1. Laparoscopic cholecystectomy and cholangiography ANESTHESIA: General with endotracheal tube. INDICATIONS: The patient is a 76-year-old man with gallstones and right upper quadrant skin gallstones and abdominal pain. SURGICAL TECHNIQUE: The patient was taken to the operating room, where a general anesthetic was administered and the patient prepped and draped in the usual sterile fashion. A local anesthetic of 0.5% Marcaine with epinephrine was used at each incision site. An intraumbilical incision was made and a Veress needle was used to insufflate. A 10 mm cannula was passed and visualization was obtained. Three additional trocars were placed under direct vision. The gallbladder was elevated and the front wall cleared up with electrocautery and blunt dissection. The cystic duct was dissected at the neck of the gallbladder and a clip was placed. A fluoroscopic cholangiogram was carried out, which demonstrated free flow into the duodenum and no filling defects. The cystic duct and cystic artery were doubly clipped and divided and the gallbladder stripped from the gallbladder fossa using electrocautery. It was then delivered to the upper midline trocar site, where it was emptied of contents and removed and submitted for histopathology. The gallbladder bed was irrigated and found to be free of bleeding or bile drainage. All free fluid was suctioned away. Additional Marcaine was instilled, gas was evacuated, and the midline trocar sites closed with interrupted subcuticular 4-0 Vicryl suture. Steri-Strips and dressings were placed at all sites, and the patient left in good condition. No intraoperative complications were encountered.
== END 2016-10-10 14:50 | disposition home or self-care (01) ==
LOC: SCU SRH 07:47 → OR SRH 07:47
PROVIDERS: Surgery
PROC: 0FT44ZZ Resection of Gallbladder, Percutaneous Endoscopic Approach (ICD-10-PCS; principal; 2016-10-10 09:30)
PROC: BF131ZZ Fluoroscopy of Gallbladder and Bile Ducts using Low Osmolar Contrast (ICD-10-PCS; principal; 2016-10-10 09:30)
DX: K80.10 Calculus of gallbladder with chronic cholecystitis without obstruction (principal); Z79.01 Long term (current) use of anticoagulants; I48.91 Unspecified atrial fibrillation
CPT/HCPCS: 29229; 29240; 50002; 60001; 70002; 80102; 80248; 82794; 82807; 83338; 83339; 83348; 83587; 83920; 83937; 83982; 84038; 90001; 90155; 91004; 94060; 95059